=== PATIENT | male | born 1980 | race Caucasian/White ===

== ENCOUNTER → 2016-08-08 12:48 | Outpatient (CLI) | payer MEDICARE | END | disposition home or self-care (01) | LOC: D.LABREF 12:48 | DX: Z51.81 Encounter for therapeutic drug level monitoring (principal) ==

== ENCOUNTER 2017-01-25 10:14 | Outpatient (CLI) | payer MEDICARE ==
[~2017-01-25] VITALS: Ht 172.7 cm; Wt 58.6 kg
[2017-01-25 10:54] VITALS: BP 125/72; Ht 172.7 cm; Wt 58.6 kg
== END 2017-01-25 11:01 | disposition home or self-care (01) ==
LOC: D.OPS 10:14
DX: M81.8 Other osteoporosis without current pathological fracture (principal)

== ENCOUNTER → 2017-07-21 12:42 | Outpatient (CLI) | payer MEDICARE ==
[2017-01-25 10:54] VITALS: BMI 19.6
== END | disposition home or self-care (01) ==
LOC: D.LAB 12:42
DX: R56.9 Unspecified convulsions (principal)

== ENCOUNTER → 2017-08-05 11:19 | Outpatient (CLI) | payer MEDICARE ==
[2017-01-25 10:54] VITALS: BMI 19.6
== END | disposition home or self-care (01) ==
LOC: D.LABREF 11:19
DX: Z51.81 Encounter for therapeutic drug level monitoring (principal); Z79.899 Other long term (current) drug therapy

== ENCOUNTER → 2018-05-18 13:33 | Outpatient (CLI) | payer MEDICARE ==
[2017-01-25 10:54] VITALS: BMI 19.6
== END | disposition home or self-care (01) ==
LOC: D.LABREF 13:33
DX: Z51.81 Encounter for therapeutic drug level monitoring (principal); Z79.899 Other long term (current) drug therapy

== ENCOUNTER 2018-06-07 12:31 | Outpatient (CLI) | payer MEDICARE ==
[~2018-06-07] VITALS: Ht 172.7 cm; Wt 57.3 kg
[2018-06-07 13:13] VITALS: BP 111/71; Ht 172.7 cm; Wt 57.3 kg
== END 2018-06-07 13:48 | disposition home or self-care (01) ==
LOC: D.OPS 12:31
DX: M81.8 Other osteoporosis without current pathological fracture (principal); Z01.812 Encounter for preprocedural laboratory examination

== ENCOUNTER → 2018-11-01 14:50 | Outpatient (CLI) | payer MEDICARE | END | disposition home or self-care (01) | LOC: D.LABREF 14:50 | DX: G40.909 Epilepsy, unspecified, not intractable, without status epilepticus (principal) ==

== ENCOUNTER 2018-11-27 13:01 | Outpatient (CLI) | payer MEDICARE ==
[~2018-11-27] VITALS: Ht 172.7 cm; Wt 59.5 kg
[2018-11-27 13:38] VITALS: BP 109/70; Ht 172.7 cm; Wt 59.5 kg
== END 2018-11-27 13:56 | disposition home or self-care (01) ==
LOC: D.OPS 13:01
PROVIDERS: ATTEND Clinical Nurse Specialist Family Health
DX: M81.0 Age-related osteoporosis without current pathological fracture (principal)

== ENCOUNTER → 2019-01-15 15:53 | Outpatient (CLI) | payer MEDICARE ==
[2018-11-27 13:38] VITALS: BMI 19.9
[~2019-01-15 15:53] MED LIST: DILANTIN100 MG PO; KEPPRA250 MG PO; NAPROSYN500 MG PO
== END | disposition home or self-care (01) ==
LOC: D.LABREF 15:53
PROVIDERS: ATTEND Pediatrics
DX: Z51.81 Encounter for therapeutic drug level monitoring (principal); Z79.899 Other long term (current) drug therapy

== ENCOUNTER → 2019-02-15 11:01 | Outpatient (CLI) | payer MEDICARE ==
[2018-11-27 13:38] VITALS: BMI 19.9
== END | disposition home or self-care (01) ==
LOC: D.LABREF 11:01
PROVIDERS: ATTEND Pediatrics
DX: Z79.899 Other long term (current) drug therapy (principal)

== ENCOUNTER → 2019-02-27 12:55 | Outpatient (CLI) | payer MEDICARE ==
[2018-11-27 13:38] VITALS: BMI 19.9
== END | disposition home or self-care (01) ==
LOC: D.LABREF 12:55
PROVIDERS: ATTEND Pediatrics
DX: Z79.899 Other long term (current) drug therapy (principal)

== ENCOUNTER 2019-03-01 19:31 | Emergency (ER) | payer MEDICARE ==
[~2019-03-01] VITALS: Ht 172.7 cm; Wt 56.8 kg
[2019-03-01 19:42] VITALS: Ht 172.7 cm; Wt 56.8 kg
[2019-03-01] MEDS ORDERED: DILANTIN100 MG PO (19:43)
[2019-03-01] MEDS ORDERED: KEPPRA250 MG PO (19:43)
[2019-03-01] MEDS ORDERED: NAPROSYN500 MG PO (22:12)
[2019-03-01 23:20] VITALS: BP 121/77
== END 2019-03-01 22:20 | disposition home or self-care (01) ==
LOC: D.ER 19:31
DX: S01.81XA Laceration without foreign body of other part of head, initial encounter (principal); W19.XXXA Unspecified fall, initial encounter

== ENCOUNTER → 2019-03-22 14:15 | Outpatient (CLI) | payer MEDICARE ==
[2019-03-01 19:42] VITALS: BMI 19.0
== END | disposition home or self-care (01) ==
LOC: D.LABREF 14:15
PROVIDERS: ATTEND Pediatrics
DX: Z79.899 Other long term (current) drug therapy (principal)

== ENCOUNTER → 2019-03-25 18:55 | Outpatient (CLI) | payer MEDICARE ==
[2019-03-01 19:42] VITALS: BMI 19.0
== END | disposition home or self-care (01) ==
LOC: D.LABREF 18:55
PROVIDERS: ATTEND Pediatrics
DX: Z79.899 Other long term (current) drug therapy (principal)

== ENCOUNTER → 2019-05-09 09:59 | Outpatient (CLI) | payer MEDICARE ==
[2019-03-01 19:42] VITALS: BMI 19.0
== END | disposition home or self-care (01) ==
LOC: D.LABREF 09:59
PROVIDERS: ATTEND Pediatrics
DX: Z79.899 Other long term (current) drug therapy (principal)

== ENCOUNTER → 2019-05-20 12:29 | Outpatient (CLI) | payer MEDICARE ==
[2019-03-01 19:42] VITALS: BMI 19.0
== END | disposition home or self-care (01) ==
LOC: D.LABREF 12:29
PROVIDERS: ATTEND Pediatrics
DX: Z79.899 Other long term (current) drug therapy (principal)

== ENCOUNTER 2019-06-04 11:58 | Outpatient (CLI) | payer MEDICARE ==
[~2019-06-04] VITALS: Ht 172.7 cm; Wt 62.3 kg
[2019-06-04 12:25] VITALS: Ht 172.7 cm; Wt 62.3 kg
--- NOTE | 2019-06-04 13:02 | NUR ---
PT LEFT UNIT AMBULATING W/ CANE W/ FIRST STEP EMPLOYEE AT [address]
== END 2019-06-04 13:01 | disposition home or self-care (01) ==
LOC: D.OPS 11:58
PROVIDERS: ATTEND Clinical Nurse Specialist Family Health
DX: M81.0 Age-related osteoporosis without current pathological fracture (principal)